=== PATIENT | male | born 2000 | race Hispanic/Latino ===

== ENCOUNTER 2024-07-25 10:29 | Observation (INO) | payer SELFPAY ==
[~2024-07-25] VITALS: Ht 165.1 cm; Wt 71.2 kg
--- NOTE | 2024-07-25 10:35 | NUR ---
REFER TO TRAUMA FLOW SHEET.
--- NOTE | 2024-07-25 10:46 | ERN ---
General Chief Complaint: Multiple Trauma/Fall Stated Complaint: FALL Time Seen by MD: 10:32 Source: patient History of Present Illness Initial Comments Patient is a 24-year-old gentleman coming in to be evaluated for headache. Per patient he fell off a balcony earlier in the morning landed in his head. In his coming in with a bleeding on the occipital region. Per family member at bedside patient did lose consciousness. Allergies: Coded Allergies: No Known Drug Allergies (Unverified Allergy, Unknown, 07/25/24) Past Medical History Past Medical History: No Pertinent History Past Surgical History: None ROS Dictation CONSTITUTIONAL: No chills, no fever, no weakness, no diaphoresis, no malaise. HEAD/FACE: signs of trauma. EENT: No eye pain, no blurred vision, no tearing, no double vision, no ear pain, no ear discharge, no nose pain, no nasal congestion, no throat pain, no throat swelling, no mouth pain. RESPIRATORY: No cough, no orthopnea, no SOB, no stridor, no wheezing. CARDIOVASCULAR: No chest pain, no edema, no palpitations, no syncope. GASTROINTESTINAL/ABDOMINAL: No abdominal pain, no constipation, no diarrhea, no nausea, no vomiting. GENITOURINARY: No abnormal discharge, no dysuria, no frequent urination, no hematuria. No complaints of pain in the genitals. MUSCULOSKELETAL: No back pain, no gout, no joint pain, no joint swelling, no muscle pain, no muscle stiffness, no neck pain. INTEGUMENTARY: No change in color, no change in hair/nails, no dryness, no lesion, no lumps, no rash. NEUROLOGICAL/PSYCH: No anxiety, not depressed, no emotional problem, no headache, no numbness, no pre-existing deficit, no history of seizures, no tremors, no weakness. HEMATOLOGIC/LYMPHATIC: Not anemic, no history of blood clots, no apparent bleeding, no bruising, glands not swollen. All Systems Negative, Except as Noted. Physical Exam Physical Exam Dictation VITAL SIGNS: Reviewed. GENERAL APPEARANCE: Alert, oriented x3, no acute distress, obese. HEAD AND FACE: traumatic, right occipital lesion bleeding. EYES: PERRL, pink conjunctivas, eyelid no trauma, anterior chamber clear. EARS: Pinnas intact and no signs of trauma or erythema. Ear canals clear and no discharge. TMs no erythema. NOSE: No discharge, no bleeding. OROPHARYNX: Mouth normal, teeth no caries, tongue pink. Pharynx clear, no erythema. Tonsils no exudates, no abscesses noted. Mucous membrane moist. NECK: Supple, non-tender, no thyromegaly, no masses, no JVD, no bruits. BREAST: Deferred. CHEST: No tenderness, no crepitus, no paradoxical movement, no retractions. LUNGS: Clear, well-ventilated, symmetric, no rales, no wheezing, no rhonchi, no stridor, good breath sounds bilaterally. HEART: Regular rate, regular rhythm, no murmur, no gallops. VASCULAR: No peripheral edema. ABDOMEN: Soft, positive bowel sounds, nondistended, no guarding, nontender, no rebound, no masses no hepatomegaly, no splenomegaly, no Tesfaye's sign, no hernias. RECTAL: Deferred. GENITAL: Deferred. NEUROLOGICAL: Normal speech, gross motor function intact, gross sensory function intact. MUSCULOSKELETAL: Neck nontender, full range of motion, back nontender, full range of motion. EXTREMITIES: Nontender, full range of motion. SKIN: Color pink, dry, no turgor, no rash, no lacerations, no abrasions, no contusions. LYMPHATICS: Deferred. Results Laboratory and Microbiology Lab and Micro Result Laboratory Tests Test 07/25/24 10:58 White Blood Count 10.0 K/uL (4.8-10.8) Red Blood Count 5.25 MIL/uL (4.50-6.20) Hemoglobin 15.0 g/dL (14.0-18.0) Hematocrit 44.5 % (42-54) Mean Corpuscular Volume 84.8 fL (79-99) Mean Corpuscular Hemoglobin 28.6 pg (27.0-33.0) Mean Corpuscular Hemoglobin Concent 33.7 g/dL (32.0-36.0) Red Cell Distribution Width 12.5 % (11.0-15.5) Platelet Count 325 K/uL (130-400) Mean Platelet Volume 9.2 fL (7.5-10.5) Immature Granulocyte % (Auto) 1.4 % (0-1) H Neutrophils (%) (Auto) 73.1 % (40.0-77.0) Lymphocytes (%) (Auto) 19.9 % (21.0-51.0) L Monocytes (%) (Auto) 5.4 % (3.0-13.0) Eosinophils (%) (Auto) 0.0 % (0.0-8.0) Basophils (%) (Auto) 0.2 % (0.0-5.0) Neutrophils # (Auto) 7.3 K/uL (1.8-7.7) Lymphocytes # (Auto) 2.0 K/uL (1.0-4.8) Monocytes # (Auto) 0.5 K/uL (0.1-1.0) Eosinophils # (Auto) 0.00 K/uL (0.00-0.70) Basophils # (Auto) 0.02 K/uL (0.00-0.20) Absolute Immature Granulocyte (auto 0.14 K/uL (0-1) Nucleated Red Blood Cells 0.0 % (0.0-0.19) Prothrombin Time 11.1 SEC (9.6-11.6) Prothromb Time International Ratio 1.05 (0.85-1.15) Sodium Level 129 mmol/L (136-145) L Potassium Level 3.4 mmol/L (3.5-5.1) L Chloride Level 98 mmol/L (101-111) L Carbon Dioxide Level 27 mmol/L (21-32) Blood Urea Nitrogen 7 mg/dL (7-18) Creatinine 0.9 mg/dL (0.5-1.3) Glomerular Filtration Rate Calc 123 mL/min (>90) Random Glucose 124 mg/dL (70-105) H Total Calcium 8.8 mg/dL (8.5-10.1) Total Creatine Kinase 235 U/L (21-232) H Troponin I High Sensitivity < 4 ng/L (4-75) L B-Type Natriuretic Peptide < 5 pg/mL (0-100) Labs Reviewed?: Yes EKG/XRAY/US/CT/MRI X-RAY Comment [place] [address] [address] IMAGING REPORT Signed PATIENT: MONICA MOSER MR#: [id number] : 2000 SEX: M AGE: 24 LOCATION: [facility] ORDER 1038 STATUS: [facility] REPORT#: [id number] SERVICE 1036 REASON: fall ORDERING PHYSICIAN: SAVANNAH FRANCE MD PROCEDURE: CXR1VW - CHEST 1VW CHEST 1VW HISTORY: Status post fall COMPARISON: 02/07/2016 FINDINGS: A frontal projection of the chest was obtained. No acute pulmonary infiltrates is seen. The heart is normal in size. Prominent interstitial markings are seen. No evidence of aortic calcification is seen. IMPRESSION: 1. No acute pulmonary infiltrate is seen. Prominent interstitial markings are seen. DICTATED BY: ASHLEE ENGLE MD DATE: 07/25/241211 ELECTRONICALLY SIGNED BY: ASHLEE ENGLE MD DATE: 07/25/[address] [place] [address] IMAGING REPORT Signed PATIENT: MONICA MOSER MR#: [id number] : 2000 SEX: M AGE: 24 LOCATION: ED ORDER 1041 STATUS: REG ER REPORT#: [id number] SERVICE 1040 REASON: fall ORDERING PHYSICIAN: SAVANNAH FRANCE MD PROCEDURE: C SPIN WO - CT CERVICAL SPINE W/O CONTRAST CT CERVICAL SPINE W/O CONTRAST HISTORY: Status post fall COMPARISON: None TECHNIQUE: Multiple sequential axial images of the cervical spine were obtained including post processing sagittal and coronal reconstruction images. Patient was not given contrast through intravenous route. FINDINGS: The study is limited due to poor positioning. There is symmetrical distance is noted between the odontoid process and lateral masses of C1 may be related to positioning. Clinical correlation is recommended. There is straightening of normal lordotic cervical curvature which may be related to muscle spasm or positioning. There is no loss of vertebral height. Evaluation for disc and cord pathology is limited with CT study. No evidence of fracture or dislocation is seen. IMPRESSION: 1. No fracture is seen. Limited study due to poor positioning. CT was performed with one or more following dose reduction techniques: automated exposure control, adjustment of the mA and kv according to patient's size, or use of a iterative reconstruction technique. DICTATED BY: ASHLEE ENGLE MD DATE: 07/25/24 1112 ELECTRONICALLY SIGNED BY: ASHLEE ENGLE MD DATE: 07/25/[address] [facility] [address] [place] [address] IMAGING REPORT Signed PATIENT: MONICA MOSER MR#: [id number] : 2000 SEX: M AGE: 24 LOCATION: [facility] ORDER 1038 STATUS: REG ER REPORT#: [id number] SERVICE 1036 REASON: fall ORDERING PHYSICIAN: SAVANNAH FRANCE MD PROCEDURE: HEAD WO - CT HEAD/BRAIN W/O CONTRAST CT HEAD/BRAIN W/O CONTRAST HISTORY: Status post fall COMPARISON: None TECHNIQUE: Multiple sequential axial images of the head were obtained from the base of the skull through vertex. Patient was not given contrast through intravenous route. FINDINGS: Right lateral scalp soft tissue swelling/hematoma is seen. The ventricles and extraventricular CSF spaces are nondilated for patient's age. There is no midline shift, mass effect or herniation. No acute intracranial bleed is seen. Visualized portion of the paranasal sinuses are grossly within normal limits. IMPRESSION: 1. No acute intracranial bleed is seen. Right lateral scalp soft tissue swelling/hematoma. CT was performed with one or more following dose reduction techniques: automated exposure control, adjustment of the mA and kv according to patient's size, or use of a iterative reconstruction technique. DICTATED BY: ASHLEE ENGLE MD DATE: 07/25/24 1111 ELECTRONICALLY SIGNED BY: ASHLEE ENGLE MD DATE: 07/25/24 1115 [facility] MDM: Differential diagnosis: Head trauma, concussion, head bleed Rationale: Tests considered and ordered secondary to shared decision making include: Previous outside records reviewed: Old ER visits. Risk of complication and/or morbidity or mortality of patient management: None Medications-Per medication reconciliation Need for hospitalization: Patient does meet criteria for hospitalization. Need for emergency major/minor surgery: No There are no social concerns with this patient. Prescription drug management Prescriptions will include symptomatic care Patient's prior external medical records from other ER visits were reviewed by me as indicated. Prior testing and results from previous visits were reviewed. Prior tests were taken into account with medical decision making and resource utilization, independent historian/historians were used to obtain complete medical history. I independently interpreted the test that were performed, results were reviewed by me and considered findings on radiology if ordered. Medical management and examination interpretation discussions were had by me with other qualified healthcare professionals as indicated for the patient's care. Patient will be placed in observation under the care of Dr. Murphy trauma surgeon. ED Course Orders Procedure Category Date Status Time Ct Head/Brain W/O CT 07/25/24 Resulted Contrast 10:36 Chest 1vw RAD 07/25/24 Resulted 10:36 Cbc With Differential LAB 07/25/24 Complete 10:36 Prothrombin Time With LAB 07/25/24 Complete INR 10:36 B-Type Natriuretic LAB 07/25/24 Complete Peptide 10:36 12 Lead Ekg Tracing- EKG 07/25/24 Logged Technical 10:36 Creatine Kinase, Total LAB 07/25/24 Complete 10:36 Troponin I High LAB 07/25/24 Complete Sensitivity 10:36 Basic Metabolic Panel LAB 07/25/24 Complete 10:36 Diph,Pertuss(Acell),Tet PHA 07/25/24 Complete Vac/Pf (Tdap) 11:00 Ct Cervical Spine W/O CT 07/25/24 Resulted Contrast 10:40 Ceftriaxone 1g Vial PHA 07/25/24 Complete (Rocephine 1g Inj) 11:00 Lidocaine Hcl 1% 20ml PHA 07/25/24 Complete Vial (Lidocaine Hc 10:55 Morphine 2mg Syg PHA 07/25/24 Transmitted (Morphine 2mg Syg) 13:00 Ondansetron 4mg Inj PHA 07/25/24 Transmitted (Zofran 4mg Inj) 13:00 Alcohol, Blood LAB 07/25/24 Verified 12:34 Current Medications Medications (Trade) Dose Ordered Sig/Moira Route PRN Reason Start Time Stop Time Status Last Admin Dose Admin Ceftriaxone Sodium (ROCEphine 1G INJ) 1 gm ONCE ONCE IVPB 07/25/24 11:00 07/25/24 11:01 DC 07/25/24 12:15 Diphtheria/ Tetanus/Acell Pertussis (Tdap) 0.5 ml ONCE ONCE IM 07/25/24 11:00 07/25/24 11:01 DC 07/25/24 12:14 Lidocaine HCl (Lidocaine HCl 1% 20ml Vial) 20 ml STK-MED ONCE .ROUTE 07/25/24 10:55 07/25/24 10:55 DC 07/25/24 12:25 Vital Signs Date Time Temp Pulse Resp B/P (MAP) Pulse Ox O2 Delivery O2 Flow Rate FiO2 07/25/24 10:30 98.1 95 18 138/94 95 Room Air Laceration/Wound Repair Laceration/Wound Repair : Wound Location: head Wound Length (cm): 6 Wound's Depth, Shape: irregular Wound Explored: clean Irrigated w/ Saline (ccs): 100 Betadine Prep?: Yes Anesthesia: 1% Lidocaine Volume Anesthetic (ccs): 8 Wound Debrided: minimal Wound Repaired With: sutures Suture Size/Type: 3:0 Number of Sutures: 8 Layer Closure?: Yes Sterile Dressing Applied?: Yes DX & DISP Disposition: Observation Decision to Admit Time: 12:35 Departure Impression: Primary Impression: Head injury Additional Impressions: [facility], Loss of consciousness Condition: Stable Referrals: SELF,REFERRAL (PCP) SAVANNAH FRANCE MD Jul 25, 2024 10:45
--- NOTE | 2024-07-25 11:15 | HMCIMG ---
CT HEAD/BRAIN W/O CONTRAST HISTORY: Status post fall COMPARISON: None TECHNIQUE: Multiple sequential axial images of the head were obtained from the base of the skull through vertex. Patient was not given contrast through intravenous route. FINDINGS: Right lateral scalp soft tissue swelling/hematoma is seen. The ventricles and extraventricular CSF spaces are nondilated for patient's age. There is no midline shift, mass effect or herniation. No acute intracranial bleed is seen. Visualized portion of the paranasal sinuses are grossly within normal limits. IMPRESSION: 1. No acute intracranial bleed is seen. Right lateral scalp soft tissue swelling/hematoma. CT was performed with one or more following dose reduction techniques: automated exposure control, adjustment of the mA and kv according to patient's size, or use of a iterative reconstruction technique.
--- NOTE | 2024-07-25 11:17 | HMCIMG ---
CT CERVICAL SPINE W/O CONTRAST HISTORY: Status post fall COMPARISON: None TECHNIQUE: Multiple sequential axial images of the cervical spine were obtained including post processing sagittal and coronal reconstruction images. Patient was not given contrast through intravenous route. FINDINGS: The study is limited due to poor positioning. There is symmetrical distance is noted between the odontoid process and lateral masses of C1 may be related to positioning. Clinical correlation is recommended. There is straightening of normal lordotic cervical curvature which may be related to muscle spasm or positioning. There is no loss of vertebral height. Evaluation for disc and cord pathology is limited with CT study. No evidence of fracture or dislocation is seen. IMPRESSION: 1. No fracture is seen. Limited study due to poor positioning. CT was performed with one or more following dose reduction techniques: automated exposure control, adjustment of the mA and kv according to patient's size, or use of a iterative reconstruction technique.
[2024-07-25 11:22] LABS: CREATININE 0.9 mg/dL (0.5-1.3); POTASSIUM 3.4 mmol/L (3.5-5.1)
[2024-07-25 11:34] LABS: BASOPHILS # (AUTO) 0.02 K/uL (0.00-0.20); BASOPHILS % (AUTO) 0.2 % (0.0-5.0); HEMATOCRIT 44.5 % (42-54); IMMATURE GRANULOCYTE ABSOLUTE 0.14 K/uL (0-1); LYMPHOCYTES % (AUTO) 19.9 % (21.0-51.0); MEAN CORPUSCULAR HEMOGLOBIN 28.6 pg (27.0-33.0); MEAN CORPUSCULAR HGB CONC 33.7 g/dL (32.0-36.0); MEAN CORPUSCULAR VOLUME 84.8 fL (79-99); MONOCYTES # (AUTO) 0.5 K/uL (0.1-1.0); MONOCYTES % (AUTO) 5.4 % (3.0-13.0); NEUTROPHILS # (AUTO) 7.3 K/uL (1.8-7.7); NEUTROPHILS % (AUTO) 73.1 % (40.0-77.0); PLATELET COUNT (AUTO) 325 K/uL (130-400); RED BLOOD CELL COUNT(AUTO) 5.25 MIL/uL (4.50-6.20); RED CELL DISTRIBUTION WIDTH 12.5 % (11.0-15.5)
[2024-07-25 11:37] LABS: B-TYPE NATRIURETIC PEPTIDE < 5 pg/mL (0-100)
[2024-07-25 11:57] LABS: INR 1.05 (0.85-1.15); PROTHROMBIN TIME 11.1 SEC (9.6-11.6)
[2024-07-25] MEDS: DIPH,PERTUSS(ACELL),TET VAC/PF 0.5 ML VIAL IM ONE (12:14)
[2024-07-25] MEDS: cefTRIAXone 1G VIAL IVPB ONE (12:15)
--- NOTE | 2024-07-25 12:15 | HMCIMG ---
CHEST 1VW HISTORY: Status post fall COMPARISON: 02/07/2016 FINDINGS: A frontal projection of the chest was obtained. No acute pulmonary infiltrates is seen. The heart is normal in size. Prominent interstitial markings are seen. No evidence of aortic calcification is seen. IMPRESSION: 1. No acute pulmonary infiltrate is seen. Prominent interstitial markings are seen.
[2024-07-25] MEDS: LIDOCAINE HCL 1% 20 ML VIAL ONE (12:25)
--- NOTE | 2024-07-25 14:01 | HP ---
Mechanism of Injury Scene LOC: Positive Fall: Fall(feet): (20) Allergies Allergies: Coded Allergies: No Known Drug Allergies (Unverified Allergy, Unknown, 07/25/24) Social History Social History: ETOH (Yes) Neurological Exam Bilateral Upper Ext. Strength: Equal Bilateral Lower Ext. Strength: Equal Bilateral Upper Ext. Sensation: Normal Bilateral Lower Ext. Sensation: Normal Hume Coma Scale Hume Coma Scale (GCS): Hume Coma Scale (GCS) Response (Comments) Value Eye Opening Spontaneous 4 Motor Response Obeys 6 Verbal Response Oriented 5 Total 15 Head Head: Traumatic (Posterior scalp lac s/p suture repair dressing in place) Trauma Scalp: Lacerations Neck Neck: No Cervical Tenderness Trachea: Midline Chest Chest: Symmetrical Excursion Abdomen Abdomen: Soft, Non-tender Pelvis/Perineum Pelvic Tenderness: No Extremities Extremities: Normal Back Back: Normal Results Labs: Laboratory Tests Test 07/25/24 10:58 Range/Units White Blood Count 10.0 4.8-10.8 K/uL Red Blood Count 5.25 4.50-6.20 MIL/uL Hemoglobin 15.0 14.0-18.0 g/dL Hematocrit 44.5 42-54 % Mean Corpuscular Volume 84.8 79-99 fL Mean Corpuscular Hemoglobin 28.6 27.0-33.0 pg Mean Corpuscular Hemoglobin Concent 33.7 32.0-36.0 g/dL Red Cell Distribution Width 12.5 11.0-15.5 % Platelet Count 325 130-400 K/uL Mean Platelet Volume 9.2 7.5-10.5 fL Immature Granulocyte % (Auto) 1.4 H 0-1 % Neutrophils (%) (Auto) 73.1 40.0-77.0 % Lymphocytes (%) (Auto) 19.9 L 21.0-51.0 % Monocytes (%) (Auto) 5.4 3.0-13.0 % Eosinophils (%) (Auto) 0.0 0.0-8.0 % Basophils (%) (Auto) 0.2 0.0-5.0 % Neutrophils # (Auto) 7.3 1.8-7.7 K/uL Lymphocytes # (Auto) 2.0 1.0-4.8 K/uL Monocytes # (Auto) 0.5 0.1-1.0 K/uL Eosinophils # (Auto) 0.00 0.00-0.70 K/uL Basophils # (Auto) 0.02 0.00-0.20 K/uL Absolute Immature Granulocyte (auto 0.14 0-1 K/uL Nucleated Red Blood Cells 0.0 0.0-0.19 % Prothrombin Time 11.1 9.6-11.6 SEC Prothromb Time International Ratio 1.05 0.85-1.15 Sodium Level 129 L 136-145 mmol/L Potassium Level 3.4 L 3.5-5.1 mmol/L Chloride Level 98 L 101-111 mmol/L Carbon Dioxide Level 27 21-32 mmol/L Blood Urea Nitrogen 7 7-18 mg/dL Creatinine 0.9 0.5-1.3 mg/dL Glomerular Filtration Rate Calc 123 >90 mL/min Random Glucose 124 H 70-105 mg/dL Total Calcium 8.8 8.5-10.1 mg/dL Total Creatine Kinase 235 H 21-232 U/L Troponin I High Sensitivity < 4 L 4-75 ng/L B-Type Natriuretic Peptide < 5 0-100 pg/mL Radiology Imaging: PATIENT: MONICA MOSER MR#: [id number] : 2000 SEX: M AGE: 24 LOCATION: [facility] ORDER 1038 STATUS: [facility] REPORT#: [id number] SERVICE 1036 REASON: fall ORDERING PHYSICIAN: SAVANNAH FRANCE MD PROCEDURE: CXR1VW - CHEST 1VW CHEST 1VW HISTORY: Status post fall COMPARISON: 02/07/2016 FINDINGS: A frontal projection of the chest was obtained. No acute pulmonary infiltrates is seen. The heart is normal in size. Prominent interstitial markings are seen. No evidence of aortic calcification is seen. IMPRESSION: 1. No acute pulmonary infiltrate is seen. Prominent interstitial markings are seen. DICTATED BY: ASHLEE ENGLE MD DATE: 07/25/24 1212 ELECTRONICALLY SIGNED BY: ASHLEE ENGLE MD DATE: 07/25/24 1215 PATIENT: MONICA MOSER MR#: [id number] : 2000 SEX: M AGE: 24 LOCATION: [facility] ORDER 1038 STATUS: REG ER REPORT#: [id number] SERVICE 1036 REASON: fall ORDERING PHYSICIAN: SAVANNAH FRANCE MD PROCEDURE: HEAD WO - CT HEAD/BRAIN W/O CONTRAST CT HEAD/BRAIN W/O CONTRAST HISTORY: Status post fall COMPARISON: None TECHNIQUE: Multiple sequential axial images of the head were obtained from the base of the skull through vertex. Patient was not given contrast through intravenous route. FINDINGS: Right lateral scalp soft tissue swelling/hematoma is seen. The ventricles and extraventricular CSF spaces are nondilated for patient's age. There is no midline shift, mass effect or herniation. No acute intracranial bleed is seen. Visualized portion of the paranasal sinuses are grossly within normal limits. IMPRESSION: 1. No acute intracranial bleed is seen. Right lateral scalp soft tissue swelling/hematoma. CT was performed with one or more following dose reduction techniques: automated exposure control, adjustment of the mA and kv according to patient's size, or use of a iterative reconstruction technique. DICTATED BY: ASHLEE ENGLE MD DATE: 07/25/24 1111 ELECTRONICALLY SIGNED BY: ASHLEE ENGLE MD DATE: 07/25/24 1115 PATIENT: MONICA MOSER MR#: [id number] : 2000 SEX: M AGE: 24 LOCATION: [facility] ORDER 1041 STATUS: REG ER REPORT#: [id number] SERVICE 1040 REASON: fall ORDERING PHYSICIAN: SAVANNAH FRANCE MD PROCEDURE: C SPIN WO - CT CERVICAL SPINE W/O CONTRAST CT CERVICAL SPINE W/O CONTRAST HISTORY: Status post fall COMPARISON: None TECHNIQUE: Multiple sequential axial images of the cervical spine were obtained including post processing sagittal and coronal reconstruction images. Patient was not given contrast through intravenous route. FINDINGS: The study is limited due to poor positioning. There is symmetrical distance is noted between the odontoid process and lateral masses of C1 may be related to positioning. Clinical correlation is recommended. There is straightening of normal lordotic cervical curvature which may be related to muscle spasm or positioning. There is no loss of vertebral height. Evaluation for disc and cord pathology is limited with CT study. No evidence of fracture or dislocation is seen. IMPRESSION: 1. No fracture is seen. Limited study due to poor positioning. CT was performed with one or more following dose reduction techniques: automated exposure control, adjustment of the mA and kv according to patient's size, or use of a iterative reconstruction technique. DICTATED BY: ASHLEE ENGLE MD DATE: 07/25/24 1112 ELECTRONICALLY SIGNED BY: ASHLEE ENGLE MD DATE: 07/25/24 1117 Injuries Injury List: scalp laceration blunt head trauma Admit to: Admit to: Med-Surg Trauma Note: Trauma Note: This is a 24-year-old male with blunt head trauma status post fall from approximately 20 ft. His only complaint currently he has had pain. He has a laceration in the posterior scalp. No apparent intracranial bleed. We will plan to observe this patient and repeat head CT in the next 8-12 hours. This long as this head CT is okay the patient is okay for discharge. ELI HADDAD DO Jul 25, 2024 14:01
--- NOTE | 2024-07-25 14:30 | EKG ---
[facility] Test Date: 2024-07-25 Test Time: 10:53:35 Pat Name: MONICA CHASE Department: [facility] Room: 424 Gender: M Side Laster Tack: [id number] : 2000 Requested By: SAVANNAH FRANCE Order Number: [id number] Reading MD: Gonzalo Rodriguez Measurements Intervals [place] Rate: 121 P: 59 [place]: 151 QRS: 78 QRSD: 94 T: 5 QT: 338 QTc: 482 Interpretive Statements Sinus tachycardia No previous ECG available for comparison Electronically Signed On 07-27-2024 16:02:23 COMFORT ADVISOR by Gonzalo Rodriguez Please click the below link to view image of tracing.
[2024-07-25] MEDS: morPHINE 2 MG SYG IVP ONE (15:01)
[2024-07-25] MEDS: ondanSETRON 4MG INJ IVP ONE (15:01)
[2024-07-25 16:15] VITALS: O2SAT 97
[2024-07-25 16:30] VITALS: BP 118/66; PULSE 77; RESP 20; TEMP 98.5
--- NOTE | 2024-07-25 19:18 | HMCIMG ---
CT HEAD/BRAIN W/O CONTRAST CLINICAL HISTORY: REASSESS COMPARISON: Previously the same day TECHNIQUE: Multiple sequential axial images of the head were obtained from the base of the skull through vertex. CT was performed with one or more of the following dose reduction techniques: automated exposure control, adjustment of the mA and/or kV according to patient size, or use of iterative reconstruction technique FINDINGS: There is interval worsening of previously identified large right scalp hematoma. This is at least doubled in size. There is no identified active extravasation of contrast. There is no skull fracture or intracranial hemorrhage. The orbital contents, paranasal sinuses and mastoid air cells are within normal limits. The calvarium is intact. IMPRESSION: Interval significant worsening of the right scalp hematoma.
[2024-07-25 19:43] VITALS: BP 110/56; PULSE 85; RESP 20; TEMP 98.3
--- NOTE | 2024-07-25 19:45 | NUR ---
ZOË HADDAD'S ANSWERING SERVICE AT THIS TIME TO INFORM HIM OF PATIENT'S REPEAT CT HEAD RESULTS. ANSWERING SERVICE TO MALCOLM PANDYA. AWAITING CALL BACK. PATIENT IS ALERT AND ORIENTED X 3, VITALS WITHIN NORMAL, BED LOCKED IN LOWEST POSITION, CALL LIGHT LEFT WITHIN REACH
--- NOTE | 2024-07-25 19:52 | NUR ---
CALL BACK RECEIVED CALL BACK FROM DR. HADDAD, INFORMED HIM OF PATIENT'S REPEAT CT HEAD RESULTS, STATED WILL KEEP PATIENT OVERNIGHT AND THEN IF PATIENT HAS NO COMPLAINTS OF PAIN AND IS STABLE, WILL CONSIDER DISCHARGE TOMORROW. NEW ORDERS RECEIVED AND CARRIED OUT
[2024-07-25] MEDS ORDERED: traMADol HCL 50 MG TABLET PO PRN (20:00)
[2024-07-25 23:06] VITALS: BP 107/72; PULSE 94; RESP 20; TEMP 98
[2024-07-25] MEDS: acetaMINOPHEN 325 MG TAB PO PRN (23:13)
[2024-07-26 03:20] VITALS: BP 117/66; PULSE 78; RESP 18; TEMP 98.1
[2024-07-26 08:00] VITALS: BP 117/64; PULSE 72; RESP 18; TEMP 98
--- NOTE | 2024-07-26 08:37 | NUR ---
PATIENT AWAKE AND ALERT IN BED. NO S/S OF DISTRESS NOTED. PATIENT C/O PAIN AND DISCOMFORT TO B/L FEET WHEN TRYING TO AMBULATE TO BATHROOM. RT FOOT NOTED TO HAVE +3 PITTING EDEMA WITH ERYTHEMA TO DORSAL AREA OF FOOT. MD NOTIFIED
--- NOTE | 2024-07-26 08:41 | NUR ---
NEW ORDER RECEIVED PER DR HADDAD FOR B/L XRAY TO LOWER EXTREMITIES
--- NOTE | 2024-07-26 10:12 | HMCIMG ---
FOOT LIMITED 2VWS LT HISTORY: Status post fall COMPARISON: None TECHNIQUE: 2 images of left foot were obtained. FINDINGS: There is no acute displaced fracture or dislocation. IMPRESSION: 1. Findings as described above.
--- NOTE | 2024-07-26 10:13 | HMCIMG ---
KNEE 2VW BILATERAL REASON: S/P FALL. COMPARISON: None TECHNIQUE: 3 images of bilateral knees were obtained with weightbearing. FINDINGS: There is no acute displaced fracture or dislocation. IMPRESSION: Findings as described above.
--- NOTE | 2024-07-26 10:14 | HMCIMG ---
FEMUR 2VW RIGHT HISTORY: Status post fall COMPARISON: None TECHNIQUE: 4 images of right femur were obtained. FINDINGS: There is no acute displaced fracture or dislocation. IMPRESSION: 1. Findings as described above.
--- NOTE | 2024-07-26 10:16 | HMCIMG ---
TIBIA/FIBULA 2VWS RT HISTORY: Status post fall COMPARISON: None TECHNIQUE: 2 images of right tibia and fibula were obtained. FINDINGS: There is no acute displaced fracture or dislocation. IMPRESSION: 1. Findings as described above.
--- NOTE | 2024-07-26 10:17 | HMCIMG ---
HIP BILAT 2VW HISTORY: Status post fall COMPARISON: None TECHNIQUE: 3 images of bilateral hips were obtained. FINDINGS: There is no acute displaced fracture or dislocation. IMPRESSION: 1. Findings as described above.
--- NOTE | 2024-07-26 10:22 | PN ---
GENERAL SURGERY PROGRESS NOTE Date/Time Patient Seen: 07/26/2024 9:00 a.m. Problem List: Fall from approximately 20 ft blunt head trauma Scalp laceration and underlying hematoma stable Right foot pain Interval History: Repeat CT scan of the head showed no intracranial bleed. There is worsening of the scalp hematoma. Patient reports that he is having no pain in his scalp. Patient has been ambulating to the bathroom and noticed this morning that he has some pain in his right foot. I ordered plain x-rays of the foot, ankle, tib- fib, knee, femur, and hip. Physical Examination: GENERAL: No acute distress. HEAD: Normal with no signs of head trauma. EYES: PERRLA, EOMI, conjunctiva and sclera normal. LUNGS: Respirations nonlabored HEART: Regular rate and rhythm ABD: Soft, nondistended, nontender, no rebound, no guarding : Not examined LYMPH: No lymphadenopathy noted. EXT: Mild swelling over the dorsum of the right foot which is tender to palpation SKIN: No rashes or lesions noted. NEURO: Awake, alert, and oriented x3. No focal sensory or strength deficits noted. Vital Signs (last 8hr) Date Time Temp Pulse Resp B/P (MAP) Pulse Ox O2 Delivery O2 Flow Rate FiO2 07/26/24 08:00 98.1 72 18 117/64 97 Room Air 07/26/24 03:20 98.1 78 18 117/66 95 Room Air Laboratory: Hematology Labs: Test 07/25/24 10:58 Range/Units White Blood Count 10.0 4.8-10.8 K/uL Red Blood Count 5.25 4.50-6.20 MIL/uL Hemoglobin 15.0 14.0-18.0 g/dL Hematocrit 44.5 42-54 % Mean Corpuscular Volume 84.8 79-99 fL Mean Corpuscular Hemoglobin 28.6 27.0-33.0 pg Mean Corpuscular Hemoglobin Concent 33.7 32.0-36.0 g/dL Red Cell Distribution Width 12.5 11.0-15.5 % Platelet Count 325 130-400 K/uL Mean Platelet Volume 9.2 7.5-10.5 fL Immature Granulocyte % (Auto) 1.4 H 0-1 % Neutrophils (%) (Auto) 73.1 40.0-77.0 % Lymphocytes (%) (Auto) 19.9 L 21.0-51.0 % Monocytes (%) (Auto) 5.4 3.0-13.0 % Eosinophils (%) (Auto) 0.0 0.0-8.0 % Basophils (%) (Auto) 0.2 0.0-5.0 % Neutrophils # (Auto) 7.3 1.8-7.7 K/uL Lymphocytes # (Auto) 2.0 1.0-4.8 K/uL Monocytes # (Auto) 0.5 0.1-1.0 K/uL Eosinophils # (Auto) 0.00 0.00-0.70 K/uL Basophils # (Auto) 0.02 0.00-0.20 K/uL Absolute Immature Granulocyte (auto 0.14 0-1 K/uL Nucleated Red Blood Cells 0.0 0.0-0.19 % Chemistry Labs: Test 07/25/24 10:58 Range/Units Sodium Level 129 L 136-145 mmol/L Potassium Level 3.4 L 3.5-5.1 mmol/L Chloride Level 98 L 101-111 mmol/L Carbon Dioxide Level 27 21-32 mmol/L Blood Urea Nitrogen 7 7-18 mg/dL Creatinine 0.9 0.5-1.3 mg/dL Glomerular Filtration Rate Calc 123 >90 mL/min Random Glucose 124 H 70-105 mg/dL Total Calcium 8.8 8.5-10.1 mg/dL Total Creatine Kinase 235 H 21-232 U/L Troponin I High Sensitivity < 4 L 4-75 ng/L B-Type Natriuretic Peptide < 5 0-100 pg/mL Coagulation Labs: Test 07/25/24 10:58 Range/Units Prothrombin Time 11.1 9.6-11.6 SEC Prothromb Time International Ratio 1.05 0.85-1.15 Diagnostics / Radiology: Images pending Impression and Plan: This is a 24-year-old male with fall from approximately 20 ft with posterior scalp laceration status post repair in the ED and right foot pain. Plain films of the bilateral lower extremities up to the hips pending. ELI HADDAD DO Jul 26, 2024 10:22
--- NOTE | 2024-07-26 10:25 | HMCIMG ---
FOOT LIMITED 2VWS RT HISTORY: Status post fall COMPARISON: None TECHNIQUE: 2 images of left foot were obtained. FINDINGS: There is no acute displaced fracture or dislocation. IMPRESSION: 1. Findings as described above.
--- NOTE | 2024-07-26 10:26 | HMCIMG ---
ANKLE 2VWS RT HISTORY: Status post fall COMPARISON: None TECHNIQUE: 2 images of right ankle were obtained. FINDINGS: There is no acute displaced fracture or dislocation. IMPRESSION: 1. Findings as described above.
--- NOTE | 2024-07-26 10:26 | HMCIMG ---
ANKLE 2VWS LT HISTORY: Status post fall COMPARISON: None TECHNIQUE: 2 images of left ankle were obtained. FINDINGS: There is no acute displaced fracture or dislocation. IMPRESSION: 1. Findings as described above.
--- NOTE | 2024-07-26 10:27 | HMCIMG ---
TIBIA/FIBULA 2VWS LT HISTORY: Status post fall COMPARISON: None TECHNIQUE: 2 images of left tibia and fibula were obtained. FINDINGS: There is no acute displaced fracture or dislocation. IMPRESSION: 1. Findings as described above.
--- NOTE | 2024-07-26 10:27 | HMCIMG ---
FEMUR 2 VW LEFT HISTORY: Status post fall COMPARISON: None TECHNIQUE: 4 images of left femur were obtained. FINDINGS: There is no acute displaced fracture or dislocation. IMPRESSION: 1. Findings as described above.
[2024-07-26 12:00] VITALS: BP 110/85; PULSE 71; RESP 20; TEMP 98.5
--- NOTE | 2024-07-26 16:31 | NUR ---
PATIENT D/C HOME. NO S/S OF DISTRESS NOTED. NO ACTIVE BLEEDING TO LACERATION ON RT SCALP. DRESSING REPLACED WITH NEW BANDAGES. PATIENT WHEELED DOWNSTAIRS AND TRANSFERRED TO PERSONAL VEHICLE. PATIENT WILL F/U WITH PCP IN 2-3 DAYS
== END 2024-07-26 16:40 | disposition home or self-care (01) ==
LOC: EDH 10:29 → EDHIP 10:30 → 4DH 16:15
PROVIDERS: ADMIT Student in an Organized Health Care Education/Training Program; ATTEND Student in an Organized Health Care Education/Training Program
DX: S01.01XA Laceration without foreign body of scalp, initial encounter (principal); M79.671 Pain in right foot; W13.0XXA Fall from, out of or through balcony, initial encounter; Y93.89 Activity, other specified; Y92.89 Other specified places as the place of occurrence of the external cause; Y99.8 Other external cause status; Z79.899 Other long term (current) drug therapy
CPT/HCPCS: 96365; 96375; 99285; 82550; 84484; 80048; 83880; 85025; 85610; 36415; 90715; 71045; 70450 ×2; 72125; 90471; 93005; 73600 ×2; 73565; 73620 ×2; 73521; 73552 ×2; 73590 ×2; G0378 ×27; J2270; J0696; J2405; 73560